=== PATIENT | female | born 1995 | race African-American/Black ===

== ENCOUNTER 2017-12-19 19:11 | Emergency (ER) | payer MEDICAID ==
[~2017-12-19] VITALS: Ht 167.6 cm; Wt 59.0 kg
[2017-12-19 22:04] VITALS: BP 126/73
== END 2017-12-19 23:25 | disposition left against medical advice (07) ==
LOC: ER 19:11
DX: R51 Headache (principal); Z53.21 Procedure and treatment not carried out due to patient leaving prior to being seen by health care provider